=== PATIENT | female | born 1960 | race Two or more races ===

== ENCOUNTER 2022-06-13 10:52 | Outpatient (CLI) | payer OTHER | END 2022-06-13 10:58 | disposition home or self-care (01) | LOC: RAD 10:52 | PROVIDERS: ATTEND Orthopaedic Surgery | DX: M25.561 Pain in right knee (principal); M25.562 Pain in left knee ==

== ENCOUNTER 2022-07-18 07:09 | Outpatient (CLI) | payer OTHER | END 2022-07-18 14:00 | disposition home or self-care (01) | LOC: LAB 07:09 | PROVIDERS: ATTEND Orthopaedic Surgery | DX: D68.9 Coagulation defect, unspecified (principal); E78.2 Mixed hyperlipidemia; N39.0 Urinary tract infection, site not specified; R07.9 Chest pain, unspecified; I10 Essential (primary) hypertension ==

== ENCOUNTER 2022-07-28 08:15 | Inpatient (IN) | payer OTHER ==
[~2022-07-28] VITALS: Ht 160 cm; Wt 108.9 kg
[2022-07-28] MEDS ORDERED: IRBESARTAN-HCT1 EACH PO (09:42)
[2022-07-28] MEDS ORDERED: AMLODIP PO (09:42)
[2022-07-28] MEDS ORDERED: OXYB PO (09:46)
[2022-07-31] MEDS ORDERED: AMLODIPINE BESYL5 MG (08:01)
[2022-07-31] MEDS ORDERED: TOLTERODINE TART4 MG (08:01)
[2022-07-31] MEDS ORDERED: SERTRALINE HCL100 MG (08:01)
[2022-07-31] MEDS ORDERED: OXYBUTYNIN CHLOR5 M1 (08:07)
== END 2022-08-02 17:01 | DRG 470 ==
LOC: SURH 07-31 05:30 → O/R 07-31 05:30 → SURH 07-31 07:00
PROVIDERS: ADMIT Orthopaedic Surgery; ATTEND Orthopaedic Surgery
PROC: 3E0F7SF Introduction of Other Gas into Respiratory Tract, Via Natural or Artificial Opening (ICD-10-PCS; 2022-07-31)
PROC: 0SRC0JZ Replacement of Right Knee Joint with Synthetic Substitute, Open Approach (ICD-10-PCS; principal; 2022-07-31 07:00)
DX: M17.11 Unilateral primary osteoarthritis, right knee (principal); M85.661 Other cyst of bone, right lower leg; R26.89 Other abnormalities of gait and mobility; I10 Essential (primary) hypertension; E66.01 Morbid (severe) obesity due to excess calories

== ENCOUNTER 2022-11-06 09:25 | Outpatient (CLI) | payer OTHER ==
[~2022-11-06 09:25] MED LIST: AMLODIP PO; AMLODIPINE BESYL5 MG; IRBESARTAN-HCT1 EACH PO; OXYB PO; OXYBUTYNIN CHLOR5 M1; SERTRALINE HCL100 MG; TOLTERODINE TART4 MG
== END 2022-11-06 09:29 | disposition home or self-care (01) ==
LOC: RAD 09:25
PROVIDERS: ATTEND Orthopaedic Surgery
DX: M25.561 Pain in right knee (principal); M25.562 Pain in left knee